=== PATIENT | male | born 1930 | race Caucasian/White ===

== ENCOUNTER → 2020-09-29 | Outpatient (CLI) | payer MEDICARE, BC, OTHER | LOC: HEART 5 07:56 | DX: I11.9 Hypertensive heart disease without heart failure (principal); I49.3 Ventricular premature depolarization | CPT/HCPCS: 78452; A9502; J2785 ==

== ENCOUNTER → 2020-10-19 | Outpatient (CLI) | payer MEDICARE, BC, OTHER | LOC: HEART 5 14:30 | DX: I11.9 Hypertensive heart disease without heart failure (principal); I49.3 Ventricular premature depolarization; I50.31 Acute diastolic (congestive) heart failure; I34.0 Nonrheumatic mitral (valve) insufficiency | CPT/HCPCS: 93306 ==